=== PATIENT | male | born 1980 | race Caucasian/White ===

== ENCOUNTER 2017-10-20 18:37 | Emergency (ER) | payer SELFPAY ==
[2017-10-20 18:38] VITALS: BP 142/92; PULSE 92; RESP 20; TEMP 36.8; O2SAT 95; BMI 40.3
--- NOTE | 2017-10-20 18:53 | XR_ITS ---
XR thoracic spine 3V Ordering Physician: Emily Conte MD Patient Age: 36 years: Male HISTORY: ITS.REASON: BACK PAIN thoracic back pain TECHNIQUE: AP lateral and swimmer's view thoracic spine. COMPARISON :03/20/2017 CT public policy manager view FINDINGS Thoracic spine is intact with no fracture evident. No subluxation. No prominent findings. Pedicles intact no paraspinal mass. Normal alignment. Vertebral bodies and disc spaces are adequately maintained. . Would noteVery scant slight wedge configuration of T12 and L1 vertebral. More likely reflecting site congenital variation as can occur here. Also note This is unchanged since March 2017 CT abdomen pelvis lateral public policy manager view/digital public policy manager radiograph used as comparison Barely evident levocurvature lower T-spine with very slight curvature towards upper T-spine. Less than 2-3 degrees and barely evident IMPRESSION: Thoracic spine intact with no acute findings. The the scant wedge configuration of T12 T11 is stable since 2016 a most likely reflect some subtle congenital variation which can occur here. (Less likely and doubt old compression fracture.) Suggestion Subtle Negligible scoliosis, barely appreciable
--- NOTE | 2017-10-20 18:53 | XR_ITS ---
XR lumbar spine 2-3V Ordering Physician: Emily Conte MD Patient Age: 36 years: Male HISTORY: ITS.REASON: BACK PAIN Low back pain. Fell on ice TECHNIQUE: Five-view lumbar spine series. COMPARISON : Previous CT abdomen and pelvis March 2017. FINDINGS No significant acute or new findings. The lumbar vertebral bodies and disc spaces are intact. Unremarkable. No pars defect. No spondylolysis nor listhesis. Initially question slight retrolisthesis of L5 on S1 but I believe is vertebra align anteriorly satisfactory fashion and appear stable since the previous 2017 study which appears within normal limits. Mild facet arthropathy L4/5 L5/S1 There is wedging at T12 and T 11 which appears to be old and most likely congenital. Less likely old mild compression injury. Anterior marginal osteophytes most evident at T12 T11. No acute additional findings. Stable since 2017. Also note stable appearance to the slightly fragmented transverse processes at L1 bilateral transverse processes intact pedicles intact. IMPRESSION: ======= No acute fracture or findings at the lumbar spine Subtle wedging at T 12 L1 appears to be a stable feature since March [address] images. Most likely congenital feature. Less likely old trauma. . Developing Degenerative facet changes L4/5 and L5/S1 also noted
--- NOTE | 2017-10-20 19:15 | HMH.EDBACK ---
ED Disposition Clinical Impression: Thoracic back pain Qualifiers: Chronicity: acute Back pain laterality: bilateral Qualified Code(s): M54.6 - Pain in thoracic spine Strain of lumbar region Qualifiers: Encounter type: initial encounter Qualified Code(s): S39.012A - Strain of muscle, fascia and tendon of lower back, initial encounter Disposition: Home, Self-Care Condition on Discharge: Good Instructions: DI for Low Back Pain Additional Instructions: Ice as needed, ten minutes at a time; do NOT take more than 800 mg of Ibuprofen in an eight hour period; Rx Flexeril: do not drive while on this medication. See your family MD for follow up in one to two days for recheck. No lifting greater than ten pounds at work until cleared by MD of choice. Prescriptions: Cyclobenzaprine HCl [Flexeril 10mg tablet] 10 mg PO TID PRN 2 Days #6 tab PRN Reason: Muscle Spasm - Critical Care Critical Care Time: No Attestation: On , the high probability of a clinically significant, sudden or life threatening deterioration of the following system(s) required my full and direct attention, intervention and personal management. The time I documented below is in addition to time spent performing reported procedures but includes the following listed in this critical care notation. Medical Decision Making - Ryan Inquiry Pt receiving controlled substance: No Vital Signs: 10/20/17 18:38 Temperature 98.2 F Temperature Source Oral Pulse Rate [Right Brachial] 92 H Respiratory Rate 20 Blood Pressure [Right Arm] 142/92 Blood Pressure Mean [Right Arm] 108 Blood Pressure Source [Right Arm] Automatic Cuff Blood Pressure Position [Right Arm] Sitting 02 Sat by Pulse Oximetry 95 Oxygen Delivery Method Room Air Orders (Tests/Meds): ED MEDICATIONS Discontinued Medications Generic Name Dose Route Start Last Admin Trade Name Freq PRN Reason Stop Dose Admin Cyclobenzaprine HCl 10 mg 10/20/17 19:19 Flexeril 10mg Tablet PO 10/20/17 19:20 ONCE ONE ORDERS Category Date Time Status XR lumbar spine 2-3V Stat Exams 10/20/17 18:53 Taken XR thoracic spine 3V Stat Exams 10/20/17 18:53 Taken - Radiology Data #1 Image(s): C-Spine, T-Spine Image Reviewed: Yes I reviewed the patient's radiology image Preliminary Findings: Normal/NAD, No Fracture Seen (good alignment; no acute fx per EDMD prelim) Back Pain HPI - General Chief Complaint: Back Pain/Injury Stated Complaint: AO [id number] Fall injury, back pain Time Seen by Provider: 10/20/17 18:50 Mode of Arrival: Ambulatory Limitations: No Limitations Description of Symptoms (Recalled from ER Triage Doc. by RN): c/o lower back pain r/t fall down a set of stairs lastnight. Reports pain is burning in nature and radiating up his back - History of Present Illness HPI Narrative: Fell with neg LOC last night. Slipped. c/o lower lumbar and mid posterior thoracic pain with movement; no new neurological sx; at times he has intermittent right hand numbness at night that seems worse when he has done repetitive movement at work; no acute changes to RUE today. No neck pain. Took 1000 mg Ibuprofen total since 399 today. No loss of bowel/bladder function. Ambulatory to ER stretcher. Onset (ago): day(s) Duration: constant Similar Symptoms Previously: No Location: lumbar spine, thoracic spine Severity: mild Quality: dull Radiation: none Exacerbating factors: movement Context: fall Associated symptoms: denies other symptoms Treatments prior to arrival: NSAIDS - Related Data Previous Rx's Medication Instructions Recorded Cyclobenzaprine HCl [Flexeril 10mg 10 mg PO TID PRN 2 Days #6 tab 10/20/17 tablet] Allergies Allergy/AdvReac Type Severity Reaction Status Date / Time Penicillins [PENICILLINS] Allergy Unknown UNKNOWN Verified 10/20/17 18:47 [facility] History Medical History: Denies:: Diabetes Mellitus Type 1, Diabetes Mellitus Type 2 Amputation: N
--- NOTE | 2017-10-20 19:18 | ED_ITS ---
ED Disposition Clinical Impression: Thoracic back pain Qualifiers: Chronicity: acute Back pain laterality: bilateral Qualified Code(s): M54.6 - Pain in thoracic spine Strain of lumbar region Qualifiers: Encounter type: initial encounter Qualified Code(s): S39.012A - Strain of muscle, fascia and tendon of lower back, initial encounter Disposition: Home, Self-Care Condition on Discharge: Good Instructions: DI for Low Back Pain Additional Instructions: Ice as needed, ten minutes at a time; do NOT take more than 800 mg of Ibuprofen in an eight hour period; Rx Flexeril: do not drive while on this medication. See your family MD for follow up in one to two days for recheck. No lifting greater than ten pounds at work until cleared by MD of choice. Prescriptions: Cyclobenzaprine HCl [Flexeril 10mg tablet] 10 mg PO TID PRN 2 Days #6 tab PRN Reason: Muscle Spasm - Critical Care Critical Care Time: No Attestation: On , the high probability of a clinically significant, sudden or life threatening deterioration of the following system(s) required my full and direct attention, intervention and personal management. The time I documented below is in addition to time spent performing reported procedures but includes the following listed in this critical care notation. Medical Decision Making - Ryan Inquiry Pt receiving controlled substance: No Vital Signs: 10/20/17 18:38 Temperature 98.2 F Temperature Source Oral Pulse Rate [Right Brachial] 92 H Respiratory Rate 20 Blood Pressure [Right Arm] 142/92 Blood Pressure Mean [Right Arm] 108 Blood Pressure Source [Right Arm] Automatic Cuff Blood Pressure Position [Right Arm] Sitting 02 Sat by Pulse Oximetry 95 Oxygen Delivery Method Room Air Orders (Tests/Meds): ED MEDICATIONS Discontinued Medications Generic Name Dose Route Start Last Admin Trade Name Freq PRN Reason Stop Dose Admin Cyclobenzaprine HCl 10 mg 10/20/17 19:19 Flexeril 10mg Tablet PO 10/20/17 19:20 ONCE ONE ORDERS Category Date Time Status XR lumbar spine 2-3V Stat Exams 10/20/17 18:53 Taken XR thoracic spine 3V Stat Exams 10/20/17 18:53 Taken - Radiology Data #1 Image(s): C-Spine, T-Spine Image Reviewed: Yes I reviewed the patient's radiology image Preliminary Findings: Normal/NAD, No Fracture Seen (good alignment; no acute fx per EDMD prelim) Back Pain HPI - General Chief Complaint: Back Pain/Injury Stated Complaint: AO [id number] Fall injury, back pain Time Seen by Provider: 10/20/17 18:50 Mode of Arrival: Ambulatory Limitations: No Limitations Description of Symptoms (Recalled from ER Triage Doc. by RN): c/o lower back pain r/t fall down a set of stairs lastnight. Reports pain is burning in nature and radiating up his back - History of Present Illness HPI Narrative: Fell with neg LOC last night. Slipped. c/o lower lumbar and mid posterior thoracic pain with movement; no new neurological sx; at times he has intermittent right hand numbness at night that seems worse when he has done repetitive movement at work; no acute changes to RUE today. No neck pain. Took 1000 mg Ibuprofen total since 0400 today. No loss of bowel/bladder function. Ambulatory to ER stretcher. Onset (ago): day(s) Duration: constant Similar Symptoms Previously: No Location: lumbar spine, thoraci
[2017-10-20 19:55] VITALS: BP 110/73; PULSE 82; RESP 18; TEMP 36.8; O2SAT 98
== END 2017-10-20 19:56 | disposition home or self-care (01) ==
PROVIDERS: Emergency Provider Emergency Medicine; PCP Physician Assistant
DX: S39.012A Strain of muscle, fascia and tendon of lower back, initial encounter (principal); W10.9XXA Fall (on) (from) unspecified stairs and steps, initial encounter; Y92.009 Unspecified place in unspecified non-institutional (private) residence as the place of occurrence of the external cause; F17.210 Nicotine dependence, cigarettes, uncomplicated
CPT/HCPCS: 72072; 72100; 99281

== ENCOUNTER → 2017-12-10 11:48 | Outpatient (CLI) | payer SELFPAY ==
[2017-12-10 14:53] LABS: Alanine Aminotransferase 101 U/L (12-78); Albumin Level 3.9 gm/dL (3.4-5.0); Alkaline Phosphatase 80 U/L (46-116); Aspartate Amino Transferase 23 U/L (15-37); Bilirubin,Direct 0.2 mg/dL (0.0-0.2); Bilirubin,Indirect 0.1 mg/dL (0.0-0.9); Bilirubin,Total 0.3 mg/dL (0.2-1.0); Total Protein,Serum 6.7 gm/dL (6.4-8.2)
== END ==
PROVIDERS: Visit Provider Surgery
DX: K80.10 Calculus of gallbladder with chronic cholecystitis without obstruction (principal)
CPT/HCPCS: 36415; 80076

== ENCOUNTER 2020-05-03 10:13 | Emergency (ER) | payer MEDICAID, SELFPAY ==
[2020-05-03 10:14] VITALS: BP 130/91; PULSE 74; RESP 17; TEMP 36.8; O2SAT 98; BMI 42.5
--- NOTE | 2020-05-03 10:23 | HMH.EDGENADL ---
ED Disposition Clinical Impression: Carpal tunnel syndrome on both sides Disposition: Home, Self-Care Condition on Discharge: Fair Instructions: DI for Carpal Tunnel Syndrome Additional Instructions: Wear wrist braces, day and night. No repetitive activities involving hands and wrists. Follow-up with orthopedics, Dr. Fisher, call to make appointment. Continue taking ibuprofen 600 mg every 6 hours. [place] at night for sleep. Do not take during the day, while driving, or working. Additional instructions for CONTROLLED SUBSTANCES: You have been prescribed a medication that is a controlled substance. Controlled substances include pain medications known as opiates and sedative nerve medications known as benzodiazepines. Tramadol, fioricet, and gabapentin are also controlled substances. Some common opiates include: Codeine (such as Tylenol #3) Hydrocodone (Vicodin, Lortab, Lorcet, [place]) Oxycodone (Percocet, Percodan, Oxycodone, Oxy IR) Some common benzodiazepines include: Diazepam (Valium) Lorazepam (Ativan) Alprazolam (Xanax) Clonazepam (Klonopin) Oxazepam (Serax) All of these controlled substances are highly addictive and frequently abused. Misuse can and frequently does lead to addiction as well as overdose and . Medication should be stored in a locked cabinet or other secure storage unit. Do not store the medication in a motor vehicle. Short term supplies, 3 days or less, are prescribed because of the highly addictive nature of the medication. Any of the controlled substance medication NOT taken should be disposed of properly and NOT SAVED. The recommended method of disposing of unused medications is: Place the medicines in a sealable plastic bag. If the medicine is a solid, crush it or add water to dissolve it. Add something undesirable (cat litter, coffee grounds, etc.) Dispose of sealed bag in household trash Do not flush or pour unused medicines down a sink or drain. Controlled substances should not be shared, given away or sold. Because of the addictive nature and frequent abuse, these medications are sometimes stolen. These medications should be kept in a safe place where they cannot be stolen. Do not keep them in your car or purse. Lost or stolen prescriptions for controlled substances WILL NOT BE REFILLED in this emergency department, regardless of whether a police report was filed. Prescriptions: Hydrocod/Acet 5/325 mg [[place] 5/325mg tablet] 1 tab PO HSP PRN #10 tab PRN Reason: Pain Transmission Status: Sent to [facility] #[id number] Referrals: PCP,No [Primary Care Provider] - Hilda Fisher MD [Physician] - Forms: Work/School Release - Critical Care Critical Care Time: No Attestation: On , the high probability of a clinically significant, sudden or life threatening deterioration of the following system(s) required my full and direct attention, intervention and personal management. The time I documented below is in addition to time spent performing reported procedures but includes the following listed in this critical care notation. Medical Decision Making - Ryan Inquiry Pt receiving controlled substance: Yes Ryan was queried for this patient: Yes Reference #:: [id number] Risks and benefits of using a controlled substance: were discussed with pt by me Comment: 1 rx 12 lortab 7.5mg 03/15/20 - dental Vital Signs: 05/03/20 10:14 Temperature 98.2 F Temperature Source Oral Pulse Rate [Right] 74 Respiratory Rate 17 Blood Pressure [Right Arm] 130/91 H Blood Pressure Mean [Right Arm] 104 02 Sat by Pulse Oximetry 98 - Physician Consults Physician Consulted: Phillip Time: 10:49 Reason -: Orthopedic Eval/Care Comment/Response: Bilateral wrist braces, follow-up in the office General Adult HPI - General Stated complaint: both hand pain Time Seen by Provider: 05/03/20 10:23 - History of Present Illness HPI narrative: Complains of
--- NOTE | 2020-05-03 10:46 | PC.NURSE ---
MESSAGE LEFT FOR DR CARDENAS TO CALL DR FLORES BACK
[2020-05-03 11:25] VITALS: BP 142/85; PULSE 87; RESP 18; TEMP 36.8; O2SAT 100
== END 2020-05-03 11:25 | disposition home or self-care (01) ==
PROVIDERS: Emergency Provider Emergency Medicine
DX: G56.03 Carpal tunnel syndrome, bilateral upper limbs (principal); F17.210 Nicotine dependence, cigarettes, uncomplicated; Z88.0 Allergy status to penicillin
CPT/HCPCS: 29125; 99282

== ENCOUNTER → 2020-05-31 14:26 | Outpatient (CLI) | payer MEDICAID, SELFPAY ==
--- NOTE | 2020-05-31 14:30 | XR_ITS ---
PROCEDURE: XR WRIST RT MIN 3V CLINICAL INDICATION: right wrist pain COMPARISON: CR XR WRIST LT MIN 3V from 05/31/2020 FINDINGS: There is a well-circumscribed calcific density along the dorsal and distal aspect of the wrist at the carpal metacarpal junction. This measures approximately 6 mm and may represent an old avulsion fracture. The no other significant anomalies are evident. The The joint spaces are well-preserved. No significant degenerative/arthritic changes. No erosive changes evident. Other findings:None. IMPRESSION: Well-circumscribed calcific density at the dorsal metacarpal-carpal junction which may represent an old avulsion injury. Otherwise negative. Dictated by: Scottie Felix MD 05/31/2020 15:17 Scottie Felix MD in [place] 05/31/2020 15:17
--- NOTE | 2020-05-31 14:30 | XR_ITS ---
PROCEDURE: XR WRIST LT MIN 3V CLINICAL INDICATION: left wrist pain; CTS COMPARISON: No exams were available for comparison FINDINGS: No fracture or dislocation. No lytic or blastic change. There is normal mineralization. The joint spaces are well-preserved. No significant degenerative/arthritic changes. No erosive changes evident. Other findings:Small cyst is present within the trapezium measuring approximately 6 mm. A small calcific density is present along the dorsal aspect of the 1st metacarpal-carpal joint nonspecific. IMPRESSION: Small cyst of the trapezium otherwise negative Dictated by: Scottie Felix MD 05/31/2020 15:20 Scottie Felix MD in [place] 05/31/2020 15:20
== END ==
PROVIDERS: Visit Provider Orthopaedic Surgery
DX: M25.532 Pain in left wrist (principal); M25.531 Pain in right wrist
CPT/HCPCS: 73110

== ENCOUNTER → 2020-07-18 11:37 | Outpatient (CLI) | payer MEDICAID, SELFPAY ==
--- NOTE | 2020-07-18 11:52 | XR_ITS ---
PROCEDURE: XR CHEST 2V CLINICAL HISTORY: TOBACCO USER COMPARISON: No exams were available for comparison FINDINGS: The cardiomediastinal silhouette and pulmonary vascularity are within normal limits. The lungs are clear without infiltrates, suspicious nodules, or pleural effusions. There is evidence of old granulomatous disease. No acute bony findings. IMPRESSION: No acute findings. Dictated by: Scottie Felix MD 07/18/2020 17:16 Scottie Felix MD in [place] 07/18/2020 17:16
[2020-07-18 12:04] LABS: Basophils # 0.1 K/mm3 (0-0.2); Eosinophils # 0.3 K/mm3 (0.0-0.4); Eosinophils % 2.7 % (0.1-12.0); Hematocrit 46.6 % (42.0-52.0); Hemoglobin 15.2 g/dL (14.1-18.0); Lymphocytes # 2.9 K/mm3 (0.7-4.5); Lymphocytes % 26.5 % (10-50); Mean Corpuscular HGB Conc 32.6 g/dL (31.8-35.4); Mean Corpuscular Hemoglobin 29.2 pg (27.0-31.2); Mean Corpuscular Volume 89.7 fl (80-94); Mean Platelet Volume 7.9 fl (7.4-10.4); Monocytes # 0.9 K/mm3 (0.1-1.0); Monocytes % 8.3 % (1.7-9.3); Neutrophils # 6.7 K/mm3 (1.8-7.8); Neutrophils % 61.5 % (37.0-80.0); Platelet Count 231 K/mm3 (142-424); Red Cell Distribution Width 13.5 % (11.5-17.5); White Blood Count 10.8 K/mm3 (4.8-10.8)
[2020-07-18 13:22] LABS: Chloride 108 mmol/L (98-107); Potassium 4.6 mmoL/L (3.5-5.1); Sodium 139 mmol/L (136-145)
[2020-07-18 13:25] LABS: Alanine Aminotransferase 22 U/L (12-78); Albumin Level 4.4 g/dl (3.5-5.0); Albumin/Globulin Ratio 1.7 (1.1-1.8); Alkaline Phosphatase 41 U/L (38-126); Anion Gap 10.6 mEq/L (5-15); Aspartate Amino Transferase 24 U/L (17-59); Bilirubin,Total 0.5 mg/dl (0.2-1.3); Blood Urea Nitrogen 12 mg/dl (9-20); Carbon Dioxide 25 mmol/L (22.0-30.0); Estimated Glomerular Filt Rate 107 ml/min (>60); GFR (African American) 130 ML/MIN (>60); Globulin 2.6 g/dL (1.3-3.2)
[2020-07-18 13:26] LABS: Calcium 9.6 mg/dl (8.4-10.2); Glucose 98 mg/dl (74-100)
[2020-07-18 13:59] LABS: Coronavirus 19 IgG Antibody Negative (Negative); Coronavirus 19 IgM Antibody Negative (Negative)
== END ==
PROVIDERS: PCP Emergency Medicine; Visit Provider Orthopaedic Surgery
DX: Z01.818 Encounter for other preprocedural examination (principal); Z03.818 Encounter for observation for suspected exposure to other biological agents ruled out; G56.01 Carpal tunnel syndrome, right upper limb
CPT/HCPCS: 36415; 71046; 80053; 85025; 86328

== ENCOUNTER 2020-07-20 08:37 | Day surgery (SDC) | payer MEDICAID, SELFPAY ==
[2020-07-18 13:50] VITALS: BMI 41.0
[2020-07-20] VITALS (12 sets, daily range): BP systolic 92–137; BP diastolic 69–85; PULSE 78–91; RESP 12–95; TEMP 36.4–43; O2SAT 92–95
--- NOTE | 2020-07-20 10:45 | HMH.ANESCL ---
[facility] Anesthesia Checklist - Structural Data Admitted From: Home Planned Operative Procedure/s: r carpal tunnel release Consent for Planned Operative Procedure(s) Verified: Yes - Additional verifications Anesthesia Reactions: No Hx Blood Transfusions: No Blood Transfusion Reaction: No - Airway Assessment C-Spine Mobility Assessed: Yes TMJ Mobility Assessed: Yes Dentition: Poor Dentition - Neurological Assessment Level of Consciousness: Awake, Alert, Appropriate - Anesthesia Plan Anesthesia Risk discussed: Yes Anesthesia Plan: Verified ASA Class: III Anesthesia Type: General [facility] History I have reviewed the patient's past medical history: Yes Medical History: Denies:: Cancer, Diabetes Mellitus Type 1, Diabetes Mellitus Type 2, Internal Pacemaker, MRSA, Seizures *Have you ever received a pneumonia vaccine?: No *Have you received a flu vaccine this season?: No Other Medical History: Denies: Blood Transfusion Reaction Anesthesia experience/problems:: none Other Surgeries: Yes: Cholecystectomy, Other. No: Pacemaker Amputation: No Fractures: No - *Social History Last grade of school completed: 9th or 10th Smoking Status: Current every day smoker Tobacco Type: cigarettes # Packs/Day (cigarettes): 1 Alcohol Intake: never Alcohol Intake Frequency:: other Substance Use Type: denies use *Occupational Status:: employed Housing: house Household Members: none *Travel in the last 8 weeks: None Family Hx:: Cancer, Coronary Artery Disease, Heart Attack, Hyperlipidemia, Hypertension
--- NOTE | 2020-07-20 11:11 | P.PN_ITS ---
[facility] Anesthesia Record Part I Intake, IV Amount: 1,200 Estimated blood loss (mL): 0 Urine output (mL): 0 Blood Pressure: 137/77 SaO2: 95 Pulse Rate: 87 Respiratory Rate: 12 Temperature: 97.5 F Patient is:: Awake, Stable Stable to PACU at:: 11:10
--- NOTE | 2020-07-20 14:36 | HMH.OPNOTE ---
Date of procedure: 07/20/20 Pre-op Diagnosis:: Carpal tunnel syndrome, right wrist Post-op Diagnosis:: Same Procedure performed:: Open carpal tunnel release, right wrist Surgeon:: Omi Aguirre MD WORKER'S COMPENSATION CLAIMS EXAMINER:: Jordan Patrick Anesthesia: LMA Estimated blood loss (mL): 2 Clinical Note:: Patient is a 39-year-old male with bilateral carpal tunnel syndrome with long-standing symptoms. The [EMG/NCV studies confirmed carpal tunnel syndrome on both sides the right side being worse than the left. Also he is more symptomatic on the right side than the left. Patient failed to respond adequately to conservative management. Therefore, carpal tunnel release surgery is necessary to relieve symptoms, preserve the remaining fibers of the median nerve, improve function and decrease the pain, paresthesias and weakness and to prevent permanent nerve damage. Please refer to my office note for full details. Operative findings:: The intraoperative findings showed the median nerve to be very tightly compressed and hyperemic. The flexor retinaculum was noted to be thick and tight. There was mild synovitis in the carpal tunnel. There was no evidence of any space-occupying lesions within the carpal tunnel. Operative note:: On the day of the surgery the patient was met in the preoperative area. Patient was positively identified and the operative site was marked and initialed by me. A physical examination was performed and the chart was updated. I again discussed the procedure, risks and benefits and alternatives with the patient. The complications discussed include but are not limited to- bleeding, injury to nerves, blood vessels and tendons, infection, wound dehiscence, incomplete relief/continued pain, persistent numbness, palmar hypersensitivity, pillar pain, DVT/PE, complex regional pain syndrome(CRPS), worsening of nerve damage, failure of the condition to improve, incomplete return of function, bowstringing of tendons, weakness of supervisor vacuum metalizing strength, recurrence, failure of the surgery to accomplish the desired goals, decreased use of the hand, loss of use of the arm, loss of the hand or arm, loss of life. Likely need for further surgery in the future has been discussed. I've indicated to the patient where the proposed incision would be made and also discussed the possibility of extending the incision if needed to accomplish an effective release. We have discussed how the goal of surgery is to protect the fibers which have remained healthy and hopefully reverse the symptoms of the fibers which are compromised but still recoverable. We have explained that, fibers that are permanently damaged will not recover. Patient asked appropriate questions and all have been answered by me. Patient wished to proceed with the surgery. Patient understood the risks, agreed to proceed with surgery, signed the consent form and no guarantees or assurances were given or implied. The patient was brought to the operating room and placed supine on the operating table. The right upper extremity was placed over a side table. All the bony prominences were well-padded. The patient had a general anesthesia administered by the history professor. A well-padded tourniquet cuff was placed over the upper arm. The right upper extremity was prepped and draped in the usual sterile fashion. A preprocedure timeout was performed as per hospital policy. The skin incision was marked using the Garcia's landmarks, just ulnar to the thenar crease. The limb was exsanguinated with the Esmarch bandage and tourniquet was inflated to 250 mmHg. Please see nursing records for the total tourniquet time. Garcia's landmarks were utilized and a skin incision was made parallel and just ulnar to the thenar crease with a 15 blade. Blunt tissue dissection was carried through the subcutaneous tissue down to the palmar fascia. The palmar fascia was incised with the knife to reveal the transverse carpal ligament. The transverse carpal ligament was adequa
--- NOTE | 2020-07-20 19:08 | HMH.ANESII ---
[facility] Anesthesia Record Part II Discharge Time: 11:37 Destination: Surgical Day Care (OP Surgery) PACU nurse assessment reviewed?: Yes Patient Condition:: Good Anesthesia Complications:: None Swallowing reflex intact?: Yes Cyanosis?: No Blood Pressure: 132/78 Pulse Rate: 83 Temperature: 97.5 F Mental Status: Alert & Oriented Pain level:: 0 Nausea and/or vomitting:: None Intake, IV Amount: 0
== END 2020-07-20 12:08 | disposition home or self-care (01) ==
LOC: OR 08:38
PROVIDERS: PCP Emergency Medicine; Visit Provider Orthopaedic Surgery
PROC: (CPT 64721; principal; 2020-07-20 10:15)
DX: G56.01 Carpal tunnel syndrome, right upper limb (principal)
CPT/HCPCS: 64721; 96374; J2405

== ENCOUNTER → 2020-08-15 13:25 | Outpatient (CLI) | payer MEDICAID, SELFPAY ==
[2020-08-15 14:15] LABS: Basophils # 0.1 K/mm3 (0-0.2); Basophils % 1.1 % (0.1-2.0); Eosinophils # 0.2 K/mm3 (0.0-0.4); Eosinophils % 2.2 % (0.1-12.0); Hematocrit 47.9 % (42.0-52.0); Hemoglobin 16.8 g/dL (14.1-18.0); Lymphocytes # 2.9 K/mm3 (0.7-4.5); Lymphocytes % 28.1 % (10-50); Mean Corpuscular HGB Conc 35.1 g/dL (31.8-35.4); Mean Corpuscular Hemoglobin 29.9 pg (27.0-31.2); Mean Corpuscular Volume 85.3 fl (80-94); Mean Platelet Volume 7.9 fl (7.4-10.4); Monocytes # 0.8 K/mm3 (0.1-1.0); Monocytes % 7.6 % (1.7-9.3); Neutrophils # 6.4 K/mm3 (1.8-7.8); Neutrophils % 61.1 % (37.0-80.0); Platelet Count 307 K/mm3 (142-424); Red Blood Count 5.61 M/mm3 (4.60-6.20); Red Cell Distribution Width 13.3 % (11.5-17.5); White Blood Count 10.5 K/mm3 (4.8-10.8)
[2020-08-15 14:40] LABS: Chloride 107 mmol/L (98-107); Potassium 4.2 mmoL/L (3.5-5.1); Sodium 139 mmol/L (136-145)
[2020-08-15 14:42] LABS: Blood Urea Nitrogen 12 mg/dl (9-20); Estimated Glomerular Filt Rate 93 ml/min (>60); GFR (African American) 113 ML/MIN (>60)
[2020-08-15 14:43] LABS: Alanine Aminotransferase 30 U/L (12-78); Albumin/Globulin Ratio 1.6 (1.1-1.8); Alkaline Phosphatase 62 U/L (38-126); Anion Gap 14.2 mEq/L (5-15); Aspartate Amino Transferase 29 U/L (17-59); Calcium 10.5 mg/dl (8.4-10.2); Carbon Dioxide 22 mmol/L (22.0-30.0); Chol/HDL Ratio 4.8 (1-3.5); Cholesterol 188 mg/dl (140-200); Globulin 3.1 g/dL (1.3-3.2); Glucose 114 mg/dl (74-100); HDL Cholesterol 39 mg/dl (40-60); Total Protein,Serum 8.1 g/dl (6.3-8.2); Triglycerides 118 mg/dl (30-150); VLDL Cholesterol 24 mg/dL (0-40)
[2020-08-15 14:56] LABS: Direct LDL Cholesterol 110.73 mg/dL (100-129)
[2020-08-15 15:00] LABS: 25-OH Vitamin D, Total 28.9 ng/mL (30-100)
[2020-08-15 15:01] LABS: T4 (Thyroxine) 10.9 ug/dl (5.53-11.0)
[2020-08-15 15:14] LABS: Thyroid Stimulating Hormone 1.22 uIU/mL (0.465-4.68)
[2020-08-18 18:54] LABS: Testosterone,Free 8.8 pg/mL (6.8-21.5)
== END ==
PROVIDERS: Visit Provider Emergency Medicine
DX: E66.9 Obesity, unspecified (principal); R53.83 Other fatigue; E55.9 Vitamin D deficiency, unspecified; Z79.899 Other long term (current) drug therapy
CPT/HCPCS: 36415; 80053; 80061; 82306; 84402; 84436; 84443; 85025

== ENCOUNTER 2020-08-17 08:09 | Day surgery (SDC) | payer MEDICAID, SELFPAY ==
[2020-08-15 09:27] VITALS: BMI 41.0
[2020-08-17 07:50] LABS: Coronavirus 19 IgG Antibody Negative (Negative); Coronavirus 19 IgM Antibody Negative (Negative)
[2020-08-17 08:27] VITALS: BP 115/61; PULSE 72; RESP 18; TEMP 36.4; O2SAT 96
--- NOTE | 2020-08-17 10:36 | P.PN_ITS ---
[facility] Anesthesia Checklist - Patient Identification Patient Identification: Arm Band - Structural Data Admitted From: Home Planned Operative Procedure/s: Left CTR Consent for Planned Operative Procedure(s) Verified: Yes Verified Documents: Surgical Consent, History and Physical - NPO Status Verified Time NPO: 00:00 - Additional verifications Anesthesia Reactions: No Hx Blood Transfusions: No Blood Transfusion Reaction: No - Airway Assessment C-Spine Mobility Assessed: Yes (mp1) TMJ Mobility Assessed: Yes Dentition: Good Dentition - Neurological Assessment Level of Consciousness: Awake, Alert - Anesthesia Plan Anesthesia Risk discussed: Yes Anesthesia Plan: Verified ASA Class: III Anesthesia Type: MAC w/Block (Risks/benefits of supraclavicular block explained. Pt verbalizes understanding) [facility] History I have reviewed the patient's past medical history: Yes Medical History: Reports:: Anxiety Denies:: Cancer, Diabetes Mellitus Type 1, Diabetes Mellitus Type 2, Internal Pacemaker, MRSA, Seizures *Have you ever received a pneumonia vaccine?: No *Have you received a flu vaccine this season?: No Other Medical History: Denies: Blood Transfusion Reaction Anesthesia experience/problems:: nac Laterality Cases: Right: Carpal Tunnel Release Other Surgeries: Yes: Cholecystectomy, Other. No: Pacemaker Amputation: No Fractures: No - *Social History Last grade of school completed: 9th or 10th Smoking Status: Current every day smoker Tobacco Type: cigarettes # Packs/Day (cigarettes): 1 Alcohol Intake: never Alcohol Intake Frequency:: other Substance Use Type: denies use *Occupational Status:: employed Housing: house Household Members: none *Travel in the last 8 weeks: None Family Hx:: Cancer, Coronary Artery Disease, Heart Attack, Hyperlipidemia, Hypertension
[2020-08-17 10:58] VITALS: BP 132/70; PULSE 70; RESP 18; TEMP 36.8; O2SAT 92
[2020-08-17 11:08] VITALS: BP 135/79; PULSE 63; RESP 18; O2SAT 96
[2020-08-17 11:18] VITALS: BP 124/87; PULSE 71; RESP 18; O2SAT 94
[2020-08-17 11:40] VITALS: BP 121/69; PULSE 60; RESP 18; O2SAT 92
--- NOTE | 2020-08-17 12:17 | HMH.OPNOTE ---
Date of procedure: 08/17/20 Pre-op Diagnosis:: Carpal tunnel syndrome, left Post-op Diagnosis:: Same Procedure performed:: Open carpal tunnel release, left wrist Surgeon:: Omi Aguirre MD Roping Machine Tender(s):: Barbara Fishman MERCHANDISE MARKER:: Silvino Hui Anesthesia: regional (Supraclavicular nerve block) Estimated blood loss (mL): 2 Clinical Note:: Patient is a 39-year-old male with left carpal tunnel syndrome with long-standing symptoms. Previously EMG/NCV studies confirmed carpal tunnel syndrome on both sides and he previously underwent successful carpal tunnel release on the right side. Patient is having significant and disabling symptoms on the left side and has failed to respond adequately to conservative management. Therefore, he opted for surgical release on the left side now. The carpal tunnel release surgery is necessary to relieve symptoms, preserve the remaining fibers of the median nerve, improve function and decrease the pain, paresthesias and weakness and to prevent permanent nerve damage. Please refer to my office note for full details. Operative findings:: The intraoperative findings showed the median nerve to be very tightly compressed and hyperemic. The flexor retinaculum was noted to be thick and tight. There was mild synovitis in the carpal tunnel. There was no evidence of any space-occupying lesions within the carpal tunnel. Operative note:: On the day of the surgery the patient was met in the preoperative area. Patient was positively identified and the operative site was marked and initialed by me. A physical examination was performed and the chart was updated. I again discussed the procedure, risks and benefits and alternatives with the patient. The complications discussed include but are not limited to- bleeding, injury to nerves, blood vessels and tendons, infection, wound dehiscence, incomplete relief/continued pain, persistent numbness, palmar hypersensitivity, pillar pain, DVT/PE, complex regional pain syndrome(CRPS), worsening of nerve damage, failure of the condition to improve, incomplete return of function, bowstringing of tendons, weakness of test carrier strength, recurrence, failure of the surgery to accomplish the desired goals, decreased use of the hand, loss of use of the arm, loss of the hand or arm, loss of life. Likely need for further surgery in the future has been discussed. I've indicated to the patient where the proposed incision would be made and also discussed the possibility of extending the incision if needed to accomplish an effective release. We have discussed how the goal of surgery is to protect the fibers which have remained healthy and hopefully reverse the symptoms of the fibers which are compromised but still recoverable. We have explained that, fibers that are permanently damaged will not recover. Patient asked appropriate questions and all have been answered by me. Patient wished to proceed with the surgery. Patient understood the risks, agreed to proceed with surgery, signed the consent form and no guarantees or assurances were given or implied. The patient was brought to the operating room and placed supine on the operating table. The left upper extremity was placed over a side table. All the bony prominences were well-padded. The patient had a supraclavicular nerve block anesthesia and IV sedation administered by the office agent. The left upper extremity was prepped and draped in the usual sterile fashion. A preprocedure timeout was performed as per hospital policy. The skin incision was marked using the Garcia's landmarks, just ulnar to the thenar crease. The limb was exsanguinated with the Esmarch bandage and tourniquet was inflated to 250 mmHg. Please see nursing records for the total tourniquet time. Garcia's landmarks were utilized and a skin incision was made parallel and just ulnar to the thenar crease with a 15 blade. Blunt tissue dissection was carried through the subcutaneous tissue down to the palmar fascia
[2020-08-17 13:01] VITALS: TEMP 43
== END 2020-08-17 11:42 | disposition home or self-care (01) ==
LOC: OR 08:10
PROVIDERS: PCP Emergency Medicine; Visit Provider Orthopaedic Surgery
PROC: (CPT 64721; principal; 2020-08-17 09:45)
DX: G56.02 Carpal tunnel syndrome, left upper limb (principal)
CPT/HCPCS: 64721; 86328; 96374; J0670

== ENCOUNTER 2020-11-02 11:00 | Outpatient (RCR) | payer MEDICAID, SELFPAY ==
--- NOTE | 2020-09-12 12:14 | HMH.RHREAS ---
Rehab Reassessment Rehab OP Re-assessment Start: 09/12/20 11:45 Freq: Status: Active Protocol: Document 09/12/20 11:45 CHRIS (Rec: 09/12/20 11:53 CHRIS [id number]) Electronically Signed By Denise Andino, OT 09/12/20 11:45 Rehab Re-assessment Subjective Subjective My R hand only bothers me sometimes but some of my left fingers go numb here and there . Objective Objective Notes Re-assessment completed this date 2* patient recieving order for rehabilitation for s/p CTS for L hand on 08/17/20. Patient is currently s/p 4 weeks from 09/14/20. Patient will continue OT OP services for s/p CTS for R hand from . Since evaluation, Patient has participated well in skilled OP OT services for s/p R CTS with manual, thera exer and modalities to improve AROM of R wrist flexion/extension, bundle collector strengthening and decrease pain level. Assessment Progress Assessment Progressing as Expected Assessment Notes Patient has made progress towards goals of R hand. 0/10 pain- current 5/10 at worst R UE AROM wrist flexion:70 R UE AROM wrist extension:70 R bundle collector strength:80# Pronation/Supination:90/90 Evaluation for L hand this date. 5/10 pain- current 5/10 at worst R UE AROM wrist flexion:73 R UE AROM wrist extension:60 R bundle collector strength:50# Pronation/Supination: 90/90 Patient goals met R hand: 5/10 pain at worst AROM of wrist flex/extension Manager [employer] strength: 80# Goals Not Met N/a Revised Goals R hand 4/10 at worst R UE AROM wrist flexion:75 R bundle collector strength:90# L hand
== END 2020-11-16 11:16 | disposition home or self-care (01) ==
LOC: OT 11:00
PROVIDERS: Visit Provider Orthopaedic Surgery
DX: G56.02 Carpal tunnel syndrome, left upper limb (principal)
CPT/HCPCS: 97014; 97035; 97110; 97140; 97164; 97165; 97530; G0283

== ENCOUNTER 2021-02-19 13:45 | Emergency (ER) | payer MEDICAID, SELFPAY ==
[2021-02-19 13:47] VITALS: BP 125/69; PULSE 73; RESP 16; TEMP 36.9; O2SAT 97; BMI 41.8
--- NOTE | 2021-02-19 13:57 | XR_ITS ---
PROCEDURE: XR FOOT LT MIN 3V CLINICAL INDICATION: Foot injury COMPARISON: No exams were available for comparison FINDINGS: No fracture or dislocation. No lytic or blastic change. There is normal mineralization. The joint spaces are well-preserved. No significant degenerative/arthritic changes. No erosive changes evident. Other findings:There is a prominent calcaneal spur small Achilles enthesophyte and mildly prominent os trigonum. A BB is present along the anterior medial aspect of the distal tibia IMPRESSION: No acute findings. Dictated by: Scottie Felix MD 02/19/2021 14:51 Scottie Felix MD in OV 02/19/2021 14:51
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
[2021-02-19 14:53] VITALS: BP 117/75; PULSE 88; RESP 14; O2SAT 98
[2021-02-19 15:10] VITALS: BP 114/72; PULSE 68; RESP 18; TEMP 36.7; O2SAT 99
== END 2021-02-19 15:23 | disposition home or self-care (01) ==
PROVIDERS: Emergency Provider Emergency Medicine; PCP Emergency Medicine
DX: S93.602A Unspecified sprain of left foot, initial encounter (principal); W10.9XXA Fall (on) (from) unspecified stairs and steps, initial encounter; Y92.019 Unspecified place in single-family (private) house as the place of occurrence of the external cause; F41.9 Anxiety disorder, unspecified; F17.210 Nicotine dependence, cigarettes, uncomplicated; Z88.0 Allergy status to penicillin
CPT/HCPCS: 73630; 99282; 99283

== ENCOUNTER 2021-05-14 17:33 | Emergency (ER) | payer MEDICAID, SELFPAY ==
--- NOTE | 2021-05-14 18:10 | XR_ITS ---
PROCEDURE INFORMATION: Exam: XR Left Shoulder Exam date and time: 05/14/2021 6:10 PM Age: 40 years old Clinical indication: Shoulder; Left; Patient HX: Pain x 1 week TECHNIQUE: Imaging protocol: XR Left shoulder. Views: 2 or more views. COMPARISON: CR XR CHEST 2V 07/18/2020 11:54 AM FINDINGS: Bones/joints: There is no evidence of acute fracture.There is no evidence of malalignment or dislocation. Soft tissues: Normal. IMPRESSION: There is no evidence of acute fracture.There is no evidence of malalignment or dislocation.
[2021-05-14 18:40] VITALS: BP 99/66; PULSE 75; RESP 18; TEMP 36.8; O2SAT 98; BMI 41.0
--- NOTE | 2021-05-14 19:12 | HMH.EDUTC ---
[facility] [place] Disposition Clinical Impression: Tendinopathy of left shoulder Left shoulder pain Qualifiers: Chronicity: acute Qualified Code(s): M25.512 - Pain in left shoulder Disposition: Home, Self-Care Condition on Discharge: Good Instructions: Shoulder Tendinopathy, DI for Shoulder Tendinopathy Additional Instructions: Rest the extremity. Start the oral steroids that we prescribed tomorrow. Follow up with Dr. Aguirre (orthopedics). I put in a referral but you need to call his office and schedule an appointment. Follow up with your regular doctor. GO TO THE ER FOR ANY WORSENING SYMPTOMS Prescriptions: Cyclobenzaprine HCl [Cyclobenzaprine 10mg Tab] 10 mg PO BIDP PRN #20 tab PRN Reason: Muscle Spasm Transmission Status: Received by [facility] #[id number] methylPREDNISolone [Medrol] 4 mg PO DIRECTED 6 Days #21 packet Transmission Status: Received by [facility] #[id number] Referrals: Dawson Singh MD [Primary Care Provider] - Omi Aguirre MD [Staff Physician] - Forms: Work/School Release Time of Disposition: 19:15 Medical Decision Making - Medical Records Medical records reviewed: No: I reviewed the patient's medical records. - Ryan Inquiry Pt receiving controlled substance: No Vital Signs: 05/14/21 18:40 05/14/21 19:21 Temperature 98.2 F 98.2 F Temperature Source Oral Pulse Rate 75 Pulse Rate [Right Brachial] 75 Respiratory Rate 18 18 Blood Pressure 99/66 L Blood Pressure [Right Arm] 99/66 L Blood Pressure Mean [Right Arm] 77 Blood Pressure Source [Right Arm] Automatic Cuff Blood Pressure Position [Right Arm] Sitting 02 Sat by Pulse Oximetry 98 Oxygen Delivery Method Room Air Orders (Tests/Meds): ED MEDICATIONS Discontinued Medications Generic Name Dose Route Start Last Admin Trade Name Freq PRN Reason Stop Dose Admin Ketorolac Tromethamine 60 mg 05/14/21 19:11 05/14/21 19:20 Ketorolac 60mg/2ml Vial IM 05/14/21 19:12 60 mg ONCE ONE Administration Methylprednisolone Sodium Succinate 125 mg 05/14/21 19:11 05/14/21 19:21 Methylprednisolone Sod Succ 125mg Vial IM 05/14/21 19:12 125 mg ONCE ONE Administration - Radiology Data #1 Image(s): Shoulder Image Reviewed: Yes I reviewed the patient's radiology image, Yes I have reviewed radiologist's interpretation Preliminary Findings: Normal/NAD, No Fracture Seen [facility] [place] HPI - General Stated complaint: L shoulder pain no accident Time Seen by Provider: 05/14/21 19:12 Mode of Arrival: Ambulatory Source of Information: Patient Limitations: No Limitations Description of Symptoms (Recalled from Triage Doc. by RN): PATIENT C/O LEFT SHOULDER PAIN X 5-6 WEEKS. REPORTS HE WOKE UP WITH IT HURTING, NO KNOWN INJURY HEENT Symptoms (Recalled from RN notes): No Resp Symptoms (Recalled from RN notes): No Skin Symptoms (Recalled from RN notes): No MS Symptoms (Recalled from RN notes): Yes Functional Status (Recalled from RN notes): WNL - History of Present Illness Provider Complaint: He states that he has had left shoulder pain that is worse with certain movements for the past 5 weeks. He denies any known injury. He has been trying to rest it and it has not helped much. - Related Data Previous Rx's Medication Instructions Recorded fluoxetine 20 mg capsule 40 mg PO DAILY #180 cap 11/23/20 lorazepam 1 mg tablet 1 mg PO DAILY PRN #10 tab 12/14/20 gabapentin 300 mg capsule 300 mg PO HS #90 cap 01/19/21 clobetasol 0.05 % topical cream 1 applic TOPICAL BID 14 Days #60 g 02/22/21 indomethacin 50 mg capsule 50 mg PO TID PRN #30 cap 02/22/21 methylprednisolone 4 mg tablets in See Rx Instructions PO PER PKG DIR 02/22/21 a dose pack #21 tab Cyclobenzaprine HCl 10 mg PO BIDP PRN #20 tab 05/14/21 [Cyclobenzaprine 10mg Tab] methylPREDNISolone [Medrol] 4 mg PO DIRECTED 6 Days #21 05/14/21 packet Allergies Allergy/AdvReac Type Severity Reaction Status Date / Time Penicillins [P
[2021-05-14 19:21] VITALS: BP 99/66; PULSE 75; RESP 18; TEMP 36.8; O2SAT 98
== END 2021-05-14 19:36 | disposition home or self-care (01) ==
PROVIDERS: Emergency Provider Nurse Practitioner Family; PCP Family Medicine
DX: M67.912 Unspecified disorder of synovium and tendon, left shoulder (principal); F41.9 Anxiety disorder, unspecified; Z88.0 Allergy status to penicillin
CPT/HCPCS: 73030; 96372; 99202; G0463

== ENCOUNTER 2021-08-12 13:36 | Emergency (ER) | payer MEDICAID, SELFPAY ==
[2021-08-12 13:52] VITALS: BP 200/137; PULSE 53; RESP 20; TEMP 36.9; O2SAT 100; BMI 39.5
[2021-08-12 14:14] LABS: Basophils # 0.2 K/mm3 (0-0.2); Basophils % 1.5 % (0.1-2.0); Eosinophils # 0.2 K/mm3 (0.0-0.4); Hematocrit 47.5 % (42.0-52.0); Hemoglobin 15.4 g/dL (14.1-18.0); Lymphocytes # 2.1 K/mm3 (0.7-4.5); Lymphocytes % 18.9 % (10-50); Mean Corpuscular HGB Conc 32.4 g/dL (31.8-35.4); Mean Corpuscular Hemoglobin 28.7 pg (27.0-31.2); Mean Corpuscular Volume 88.4 fl (80-94); Monocytes # 0.5 K/mm3 (0.1-1.0); Monocytes % 4.8 % (1.7-9.3); Neutrophils % 72.9 % (37.0-80.0); Platelet Count 285 K/mm3 (142-424); Red Blood Count 5.37 M/mm3 (4.60-6.20); Red Cell Distribution Width 13.1 % (11.5-17.5)
[2021-08-12 14:18] LABS: Alanine Aminotransferase 29 U/L (12-78); Albumin Level 4.6 g/dl (3.5-5.0); Albumin/Globulin Ratio 1.6 (1.1-1.8); Alkaline Phosphatase 66 U/L (38-126); Anion Gap 10.9 mEq/L (5-15); Aspartate Amino Transferase 33 U/L (17-59); Bilirubin,Total 0.7 mg/dl (0.2-1.3); Blood Urea Nitrogen 16 mg/dl (9-20); Calcium 9.8 mg/dl (8.4-10.2); Carbon Dioxide 24 mmol/L (22.0-30.0); Chloride 103 mmol/L (98-107); Creatinine Clearance Estimated 232 mL/min (50-200); Estimated Glomerular Filt Rate 124 ml/min (>60); GFR (African American) 150 ML/MIN (>60); Globulin 2.9 g/dL (1.3-3.2); Glucose 124 mg/dl (74-100); Potassium 3.9 mmoL/L (3.5-5.1); Sodium 134 mmol/L (136-145); Total Protein,Serum 7.5 g/dl (6.3-8.2)
--- NOTE | 2021-08-12 14:23 | HMH.EDGENADL ---
ED Disposition Clinical Impression: Right upper quadrant abdominal pain Disposition: Home, Self-Care Condition on Discharge: Good Instructions: DI for Acute Abdominal Pain Additional Instructions: Protonix as prescribed. Zofran as needed for nausea. Call Dr. Singh tomorrow to arrange follow-up. Additional instructions for ABDOMINAL PAIN: See your physician as soon as possible for further evaluation. Return immediately if worsening abdominal pain, vomiting, shortness of breath, fever, vomiting of blood or abdominal distention. Prescriptions: Pantoprazole Sodium [Protonix 40mg tablet] 40 mg PO DAILY #15 tab Transmission Status: Received by [facility] #[id number] Ondansetron [Zofran 4mg ODT] 4 mg PO TIDP PRN #10 tab PRN Reason: Nausea And Vomiting Transmission Status: Received by [facility] #[id number] Referrals: Dawson Singh MD [Primary Care Provider] - - Critical Care Critical Care Time: No Attestation: On 08/12/21, the high probability of a clinically significant, sudden or life threatening deterioration of the following system(s) required my full and direct attention, intervention and personal management. The time I documented below is in addition to time spent performing reported procedures but includes the following listed in this critical care notation. Medical Decision Making - Ryan Inquiry Pt receiving controlled substance: Yes Ryan was queried for this patient: Yes Risks and benefits of using a controlled substance: were not discussed with pt by me Vital Signs: 08/12/21 13:52 08/12/21 14:56 08/12/21 15:00 Temperature 98.4 F Temperature Source Oral Pulse Rate 62 56 L Pulse Rate [Left Radial] 53 L Respiratory Rate 20 Blood Pressure 173/108 H 183/112 H Blood Pressure [Right Arm] 200/137 H Blood Pressure Mean [Right Arm] 158 02 Sat by Pulse Oximetry 100 98 96 Oxygen Delivery Method Room Air - Lab Data Lab Results 08/12/21 13:50: WBC 11.0 H, RBC 5.37, Hgb 15.4, Hct 47.5, MCV 88.4, MCH 28.7, MCHC 32.4, RDW 13.1, Plt Count 285, MPV 9.0, Neut % (Auto) 72.9, Lymph % (Auto) 18.9, [place] % (Auto) 4.8, Eos % (Auto) 2.0, Baso % (Auto) 1.5, Neut # (Auto) 8.0 H, Lymph # (Auto) 2.1, [place] # (Auto) 0.5, Eos # (Auto) 0.2, Baso # (Auto) 0.2 08/12/21 13:50: Sodium 134 L, Potassium 3.9, Chloride 103, Carbon Dioxide 24, Anion Gap 10.9, BUN 16, Creatinine 0.70, Estimated Creat Clear 232, Estimated GFR 124, Est GFR ( Amer) 150, Glucose 124 H, Calcium 9.8, Total Bilirubin 0.7, AST 33, ALT 29, Alkaline Phosphatase 66, Total Protein 7.5, Albumin 4.6, Globulin 2.9, Albumin/Globulin Ratio 1.6 08/12/21 13:50: Lipase 94 08/12/21 13:50: Troponin I < 0.01 Result diagrams: 08/12/21 13:50 08/12/21 13:50 Orders (Tests/Meds): ED MEDICATIONS Generic Name Dose Route Start Last Admin Trade Name Freq PRN Reason Stop Dose Admin Sodium Chloride 8 ml 08/12/21 16:27 Sodium Chloride 0.9% 10ml Vial IV 09/11/21 16:26 NEEDED PRN dilute pepcid Discontinued Medications Generic Name Dose Route Start Last Admin Trade Name Freq PRN Reason Stop Dose Admin Belladonna Alkaloids 60 ml 08/12/21 16:26 08/12/21 16:43 Gi Cocktail 60ml Udc PO 08/12/21 16:27 60 ml ONCE ONE Administration Famotidine 20 mg 08/12/21 16:27 08/12/21 16:43 Famotidine 20mg/2ml Vial IV 08/12/21 16:28 20 mg ONCE ONE Administration Hydromorphone HCl 1 mg 08/12/21 14:29 08/12/21 14:36 Hydromorphone 2mg/Ml Syringe IV 08/12/21 14:30 1 mg ONCE ONE Administration Hydromorphone HCl 1 mg 08/12/21 15:08 08/12/21 15:09 Hydromorphone 2mg/Ml Syringe IV 08/12/21 15:09 1 mg ONCE ONE Administration Sodium Chloride 1,000 mls @ 999 mls/hr 08/12/21 14:15 08/12/21 14:05 Sod Chlor 0.9% 1000ml Bag IV 08/12/21 15:15 999 mls/hr .Q1H1M FREDY Administration Iopamidol 75 ml 08/12/21 14:49 08/12/21 14:50 Iopamidol-370 (76%);100ml Bottle IV 08/12/21
--- NOTE | 2021-08-12 14:29 | CT_ITS ---
PROCEDURE INFORMATION: Exam: CT Abdomen And Pelvis With Contrast Exam date and time: 08/12/2021 2:29 PM Age: 40 years old Clinical indication: Abdominal pain; Epigastric; Additional info: Ruq/epigastric pain TECHNIQUE: Imaging protocol: Computed tomography of the abdomen and pelvis with contrast. Radiation optimization: All CT scans at this facility use at least one of these dose optimization techniques: automated exposure control; mA and/or kV adjustment per patient size (includes targeted exams where dose is matched to clinical indication); or iterative reconstruction. Contrast material: ISOVUE; Contrast volume: 75 ml; Contrast route: IV; COMPARISON: ABDPELWO CT abdomen pelvis wo con 11/28/2017 1:11 PM FINDINGS: Lungs: Granulomatous density noted within the right lung base. Mediastinal space: Thickening of the abraham of the distal esophagus present which may be consistent with esophagitis. Liver: There is a diffuse decrease in hepatic parenchymal density, consistent with mild fatty infiltration. Gallbladder and bile ducts: There has been a cholecystectomy, per history. Mild dilatation of the common bile duct. Pancreas: Normal. No ductal dilation. Spleen: The spleen demonstrates punctate calcifications, consistent with remote granulomatous organism exposure. Adrenal glands: Normal. No mass. Kidneys and ureters: Normal. No hydronephrosis. Stomach and bowel: Mild diverticulosis is present in the distal colon. Appendix: No evidence of appendicitis. Intraperitoneal space: Normal. No significant fluid collection. Vasculature: The vasculature demonstrates diffuse mild atherosclerotic calcification. Lymph nodes: Unremarkable. No enlarged lymph nodes. Urinary bladder: Unremarkable as visualized. Reproductive: Unremarkable as visualized. Bones/joints: Mild compression deformities of T11 and T12 are again noted. The lumbar spine demonstrates mild degenerative changes at multiple levels. Soft tissues: Soft tissues are normal. IMPRESSION: 1. There has been a cholecystectomy, per history. 2. Mild dilatation of the common bile duct. No definite calcification within the bile duct as imaged. Further evaluation with right upper quadrant ultrasound and or MRI may be beneficial, as clinically warranted 3. Thickening of the abraham of the distal esophagus present which may be consistent with esophagitis. 4. There is a diffuse decrease in hepatic parenchymal density, consistent with mild fatty infiltration. 5. Mild diverticulosis is present in the distal colon.
[2021-08-12 14:56] VITALS: BP 173/108; PULSE 62; O2SAT 98
[2021-08-12 15:00] VITALS: BP 183/112; PULSE 56; O2SAT 96
[2021-08-12 16:12] LABS: Lipase 94 U/L (23-300)
--- NOTE | 2021-08-12 16:27 | ECG_ITS ---
APPROVED REPORT Exam: Resting ECG HR:63 bpm ECG Measurements Heart Rate 63 AXES OH 172 P 45 QRSd 98 QRS 91 QT 434 T 27 QTc 444 Conclusion Normal sinus rhythm Rightward axis Borderline ECG Electronically signed by : Rodolfo Marin MD 08/13/2021 21:40:33
[2021-08-12 17:16] LABS: Troponin I < 0.01 ng/ml (0.00-0.034)
[2021-08-12 18:50] VITALS: BP 112/67; PULSE 60; RESP 16; TEMP 36.9; O2SAT 99
== END 2021-08-12 18:54 | disposition home or self-care (01) ==
PROVIDERS: Emergency Provider Emergency Medicine; PCP Family Medicine
DX: R10.11 Right upper quadrant pain (principal); R10.13 Epigastric pain; F41.9 Anxiety disorder, unspecified; Z88.0 Allergy status to penicillin; F17.210 Nicotine dependence, cigarettes, uncomplicated
CPT/HCPCS: 74177; 80053; 83690; 84484; 85025; 93005; 96365; 96367; 96375; 99283; J2405; Q9967

== ENCOUNTER → 2021-08-29 07:57 | Outpatient (CLI) | payer MEDICAID, SELFPAY | PROVIDERS: Visit Provider Nurse Practitioner | DX: U07.1 COVID-19 (principal) | CPT/HCPCS: C9803; U0003; U0005 ==

== ENCOUNTER 2022-06-15 19:56 | Emergency (ER) | payer BC, MEDICAID, SELFPAY ==
[2022-06-15 19:56] VITALS: BP 122/80; PULSE 83; RESP 21; TEMP 37; O2SAT 97; BMI 33.4
--- NOTE | 2022-06-15 20:00 | ECG_ITS ---
APPROVED REPORT Exam: Resting ECG HR:80 bpm ECG Measurements Heart Rate 80 AXES [place] 183 P 62 QRSd 90 QRS 61 QT 349 T 40 QTc 384 Conclusion SINUS RHYTHM WITH SINUS ARRHYTHMIA NORMAL ECG UNCONFIRMED REPORT Electronically signed by : Rodolfo Marin MD 06/16/2022 08:52:38
--- NOTE | 2022-06-15 20:05 | XR_ITS ---
PROCEDURE INFORMATION: Exam: XR Right Forearm Exam date and time: 06/15/2022 8:12 PM Age: 41 years old Clinical indication: Injury or trauma; Fall; Blunt trauma (contusions or hematomas); Wrist; Right; Injury date: Today; Additional info: Forearm pain after falling TECHNIQUE: Imaging protocol: Radiologic exam of the Right forearm. Views: 2 views. COMPARISON: CR XR WRIST RT MIN 3V 05/31/2020 2:32 PM FINDINGS: Bones/joints: Subtle cortical irregularity of the radial head. No definite fracture plane identified. Clinically correlate if appropriate follow-up with dedicated elbow radiographs. Soft tissues: Mild soft tissue swelling. Incomplete visualization of soft tissue swelling in the region of the olecranon. IMPRESSION: 1. No evidence of acute osseous injury. 2. Findings suggesting changes of olecranon bursitis. 3. Subtle cortical regularity radial head. No definite fracture plane demonstrated. If appropriate, follow-up with dedicated elbow radiographs.
--- NOTE | 2022-06-15 20:05 | XR_ITS ---
PROCEDURE INFORMATION: Exam: XR Left Knee Exam date and time: 06/15/2022 8:07 PM Age: 41 years old Clinical indication: Injury or trauma; Fall; Blunt trauma; Knee; Left; Injury date: Today; Additional info: Left knee pain TECHNIQUE: Imaging protocol: Radiologic exam of the Left knee. Views: 3 views. COMPARISON: No relevant prior studies available. FINDINGS: Bones/joints: No acute fracture. No dislocation. No significant joint effusion. Soft tissues: Unremarkable. IMPRESSION: No fracture. If pain persists, suggest MRI to evaluate for occult fracture/internal derangement.
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
--- NOTE | 2022-06-15 20:13 | PC.NURSE ---
RAD at for CXR
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
[2022-06-15 20:46] LABS: Basophils # 0.2 K/mm3 (0-0.2); Basophils % 1.4 % (0.1-2.0); Eosinophils # 0.4 K/mm3 (0.0-0.4); Eosinophils % 3.2 % (0.1-12.0); Hematocrit 42.1 % (42.0-52.0); Hemoglobin 13.4 g/dL (14.1-18.0); Lymphocytes # 2.5 K/mm3 (0.7-4.5); Lymphocytes % 23.4 % (10-50); Mean Corpuscular HGB Conc 31.8 g/dL (31.8-35.4); Mean Corpuscular Volume 91.2 fl (80-94); Monocytes # 0.7 K/mm3 (0.1-1.0); Monocytes % 6.3 % (1.7-9.3); Neutrophils # 7.1 K/mm3 (1.8-7.8); Neutrophils % 65.7 % (37.0-80.0); Platelet Count 231 K/mm3 (142-424); Red Blood Count 4.62 M/mm3 (4.60-6.20); Red Cell Distribution Width 13.3 % (11.5-17.5); White Blood Count 10.9 K/mm3 (4.8-10.8)
[2022-06-15 20:57] LABS: Alanine Aminotransferase 23 U/L (12-78); Albumin Level 4.6 g/dl (3.5-5.0); Alkaline Phosphatase 67 U/L (38-126); Anion Gap 15.6 mEq/L (5-15); Aspartate Amino Transferase 28 U/L (17-59); Bilirubin,Total 0.5 mg/dl (0.2-1.3); Blood Urea Nitrogen 14 mg/dl (9-20); Calcium 10.1 mg/dl (8.4-10.2); Carbon Dioxide 27 mmol/L (22.0-30.0); Chloride 104 mmol/L (98-107); Creatinine Clearance Estimated 194 mL/min (50-200); Estimated Glomerular Filt Rate 124 ml/min (>60); GFR (African American) 150 ML/MIN (>60); Globulin 2.3 g/dL (1.3-3.2); Glucose 124 mg/dl (74-100); Potassium 4.6 mmoL/L (3.5-5.1); Sodium 142 mmol/L (136-145); Total Protein,Serum 6.9 g/dl (6.3-8.2)
[2022-06-15 21:41] LABS: VBG Base Excess -2.9 mmol/L (-2.4-2.3); VBG HCO3 22.7 mmol/L (23-30); VBG PH 7.35 mmol/L (7.31-7.41); VBG PO2 82.1 mmol/L (28-40)
--- NOTE | 2022-06-15 21:46 | PC.NURSE ---
Called respiratory to verify patients carboxyhemoglobin level. Level of 5.8 was printed on vbg result. Given to .
--- NOTE | 2022-06-15 22:27 | PC.NURSE ---
Pt ambulatory to bathroom
--- NOTE | 2022-06-15 22:28 | PC.NURSE ---
Recheck pt condition. No needs or complaints voiced at this time.
[2022-06-15 23:34] VITALS: BP 135/87; PULSE 79; RESP 19; TEMP 36.9; O2SAT 98
== END 2022-06-15 23:49 | disposition home or self-care (01) ==
PROVIDERS: Emergency Provider Student in an Organized Health Care Education/Training Program
DX: T59.811A Toxic effect of smoke, accidental (unintentional), initial encounter (principal); R06.02 Shortness of breath; M25.562 Pain in left knee; M79.631 Pain in right forearm; X00.1XXA Exposure to smoke in uncontrolled fire in building or structure, initial encounter; Y92.009 Unspecified place in unspecified non-institutional (private) residence as the place of occurrence of the external cause
CPT/HCPCS: 71045; 73090; 73562; 80053; 82803; 85025; 93005; 99285